=== PATIENT | male | born 1990 | race Hispanic/Latino ===

== ENCOUNTER 2024-05-27 23:59 | Emergency (ER) | payer SELFPAY ==
--- OUTSIDE RECORDS SUMMARY | 2024-05-28 00:02 | XMS REPORT | Continuity of Care Document ---
Author Name Unknown Address [address] [facility] [place] [address] [facility] thconnect Address [address] [facility] [address] [place] [address] Care Team Providers Care Certified Registered Dental Assistant Name Role Phone [facility]In[facility] Attending Clinician Unavail able [facility] Admitting Clinician Unavail able Payers Payer Name Policy Type Policy Number Effective Date Expirati on Date Source Problems Condition Name Condition Details Condition Category Status Onset Date Resolution Date Last Treatment Date Treating Clinician Comments Source Elevated blood-pres sure reading without diagnosis of hypertensi on Elevated Blood-pres sure Reading without Diagnosis of Hypertensi on Problem Active - 00:00: 00 [facility] Upper respirator y infection Upper Respirator y Infection Problem Active 11-18 00:00: 00 [facility] Seasonal allergic rhinitis Seasonal Allergic Rhinitis Problem Active 11-18 00:00: 00 [facility] Social History Smoking Status Start Date Stop Date Source Never Smoker [facility] Medications Ordered Medication Name Filled Medication Name Start Date Stop Date Current Medication? Ordering Clinician Indication Dosage Frequency Signature (SIG) Comments Components Source Mucinex as directed Mucinex as directed No Mucinex as directed [facility] Claritin 10 mg tablet Take 1 tablet every day by oral route. Claritin 10 mg tablet Take 1 tablet every day by oral route. No 1 Q1D Claritin 10 mg tablet Take 1 tablet every day by oral route. [facility] Vital Signs Vital Name Observation Time Observation Value Comments S ource BP Diastolic 2023-11-19 00:00:00 96 mm[Hg] [facility] BMI (Body Mass Index) 2023-11-19 00:00:00 29.4 kg/m2 [facility] BP Systolic 2023-11-19 00:00:00 138 mm[Hg] [facility] Height 2023-11-19 00:00:00 62 [in_i] [facility] Body Weight 2023-11-19 00:00:00 2568 [oz_av] [facility] Plan of Care Planned Activity Planned Date Details Comments Source Diagnostic Test Pending 2023-11-19 00:00:00 rapid SARS CoV 2 Ag, QL IA, respiratory specimen [code = rapid SARS CoV 2 Ag, QL IA, respiratory specimen] [facility] Diagnostic Test Pending 2023-11-19 00:00:00 CBC w/ auto diff [code = CBC w/ auto diff] [facility] Diagnostic Test Pending 2023-11-19 00:00:00 lipid panel, serum [code = lipid panel, serum] [facility] Diagnostic Test Pending 2023-11-19 00:00:00 CMP, serum or plasma [code = CMP, serum or plasma] [facility] Diagnostic Test Pending 2023-11-19 00:00:00 HbA1c (hemoglobin A1c), blood [code = HbA1c (hemoglobin A1c), blood] [facility] Encounters Start Date/Time End Date/Time Encounter Type Admission Type Attending [facility] Facility Care Department Encounter ID Source 2023-11-19 00:00:00 2023-11-19 00:00:00 TANJA Lewis: [id number] [id number] , Ph. [facility]Walk In[facility] - [facility]_Need velma Office [phone] [facility] Results Test Description Test Time Test Comments Results Result Co mments Source [facility]
[2024-05-28] MEDS ORDERED: IBUPROFEN 400 MG TAB ONE (00:39)
[2024-05-28] MEDS ORDERED: HYDROCOD 2.5mg-ACETAMIN 108mg/5mL Soln ONE (00:39)
[2024-05-28 01:24] LABS: SARS-CoV-2 Antigen CONTROL BLUE LINE VIS/BG OK; SARS-CoV-2 Antigen Rapid Res Negative (Negative)
--- NOTE | 2024-05-28 03:03 | ER ---
Nurse's Notes [facility] Name: Spencer James Age: 33 yrs Sex: Male : 1990 Arrival Date: 05/27/2024 Time: 23:59 Bed 8 Private MD: Diagnosis: Acute tonsillitis, unspecified;Acute bacterial tonsillitis Presentation: 05/28 00:23 Chief complaint: Patient states: SORE THROAT AND FEVER FOR THE PAST TWO DAYS. ha1 00:23 Coronavirus screen: Vaccine status: Patient reports receiving the 2nd dose of the covid ha1 vaccine. [employer]. Ebola Screen: No symptoms or risks identified at this time. Initial Sepsis Screen: Does the patient meet any 2 criteria? No. Patient's initial sepsis screen is negative. Does the patient have a suspected source of infection? No. Patient's initial sepsis screen is negative. Risk Assessment: Do you want to hurt yourself or someone else? Patient reports no desire to harm self or others. Onset of symptoms was May 28, 2024. 00:23 Method Of Arrival: Ambulatory ha1 00:23 Acuity: NALDO 4 ha1 Triage Assessment: 00:23 General: Appears comfortable, Behavior is calm, cooperative. Pain: Complains of pain in ha1 SORE THROAT Pain does not radiate. Pain currently is 6 out of 10 on a pain scale. Quality of pain is described as aching. Neuro: Level of Consciousness is awake, alert, obeys commands, Oriented to person, place, time, situation. Cardiovascular: Patient's skin is warm and dry. Respiratory: Airway is patent Respiratory effort is even, unlabored, Respiratory pattern is regular, symmetrical. Historical: - Allergies: 00:38 No Known Allergies; ha1 - PMHx: 00:38 None; ha1 - Immunization history:: Adult Immunizations up to date. - Infectious Disease History:: Denies. - Social history:: Smoking status: Patient denies any tobacco usage or history of. Screenin:25 [facility] ED Fall Risk Assessment (Adult) History of falling in the last 3 months, br2 including since admission No falls in past 3 months (0 pts) Confusion or Disorientation No (0 pts) Intoxicated or Sedated No (0 pts) Impaired Gait No (0 pts) Mobility Assist Device Used No (0 pt) Altered Elimination No (0 pt) Score/Fall Risk Level 0 - 2 = Low Risk Oriented to surroundings, Maintained a safe environment, Hourly rounding (assess needs \T\ fall precautionary measures) done. Abuse screen: Denies threats or abuse. Denies injuries from another. Nutritional screening: No deficits noted. Tuberculosis screening: No symptoms or risk factors identified. Assessment: 00:25 Reassessment: Patient and/or family updated on plan of care and expected duration. Pain br2 level reassessed. Patient is alert, oriented x 3, equal unlabored respirations, skin warm/dry/pink. General: Appears in no apparent distress. comfortable, Behavior is calm, cooperative, quiet. Pain: Complains of pain in neck Pain does not radiate. Pain currently is 5 out of 10 on a pain scale. Neuro: Ernandez Agitation-Sedation Scale (RASS): 0 - Alert and Calm Level of Consciousness is awake, alert, obeys commands, Oriented to person, place, time, situation. Cardiovascular: Denies chest pain, shortness of breath, Capillary refill < 3 seconds Patient's skin is warm and dry. Respiratory: Airway is patent Respiratory effort is even, unlabored, Respiratory pattern is regular, symmetrical, Breath sounds are clear bilaterally. GI: No signs and/or symptoms were reported involving the gastrointestinal system. Abdomen is flat, non-distended. : No signs and/or symptoms were reported regarding the genitourinary system. EENT: No signs and/or symptoms were reported regarding the EENT system. Throat is reddened. Derm: No signs and/or symptoms reported regarding the dermatologic system. Skin is intact, Skin is dry, Skin is normal, Skin temperature is warm. Musculoskeletal: No signs and/or symptoms reported regarding the musculoskeletal system. Circulation, motion, and sensation intact. Capillary refill < 3 seconds, Range of motion: intact in all extremities. 02:36 Reassessment: Patient and/or family updated on plan of care and expected duration. Pain br2 level reassessed. Patient is alert, oriented x 3, equal unlabored respirations, skin warm/dry/pink. Patient states feeling better. Patient states symptoms have improved. Vital Signs: 00:23 BP 133 / 84; Pulse 90; Resp 16 S; Temp 99.5; Pulse Ox 100% on R/A; Weight 66.22 kg (R); ha1 Height 5 ft. 4 in. ; 01:59 BP 127 / 73; Pulse 80; Resp 18 S; Pulse Ox 96% on R/A; br2 02:36 BP 127 / 73; Pulse 80; Resp 18 S; Pulse Ox 98% on R/A; Pain 2/10; br2 03:30 BP 126 / 85; Pulse 68 LA; Resp 19 S; Pulse Ox 99% on R/A; br2 00:23 Body Mass Index 25.06 (66.22 kg, 162.56 cm) ha1 02:36 Pain Scale: Adult br2 ED Course: 00:05 Patient arrived in ED. jj6 00:06 Davian Kay PA is PHCP. cp 00:06 David Arevalo MD is Attending Physician. cp 00:25 Patient has correct armband on for positive identification. Bed in low position. Call br2 light in reach. Side rails up X 1. Provided Education on: PLAN OF CARE. 00:30 Arm band placed on right wrist. br2 00:34 Rose Marie Peace, LIZETTE is Primary Nurse. br2 00:38 Triage completed. ha1 01:58 Throat Culture Sent. br2 03:31 No provider procedures requiring assistance completed. Patient did not have IV access br2 during this emergency room visit. Administered Medications: 00:49 Drug: Ibuprofen PO 800 mg PO once Route: PO; br2 01:59 Follow up: Response: No adverse reaction; Pain is decreased br2 00:49 Drug: Lortab PO Liquid 10 ml PO once Route: PO; br2 01:58 Follow up: Response: No adverse reaction; Pain is decreased br2 03:22 Drug: Acetaminophen PO 500 mg PO once Route: PO; al5 03:29 Follow up: Response: No adverse reaction br2 03:22 Drug: Rocephin (cefTRIAXone) IM 1 grams IM once Route: IM; Site: right gluteus; al5 03:29 Follow up: Response: No adverse reaction br2 Medication: 00:25 VIS not applicable for this client. br2 Outcome: 03:02 Discharge ordered by . sp4 03:31 Discharged to home ambulatory, br2 03:31 Condition: improved 03:31 Discharge instructions given to patient, significant other, Instructed on discharge instructions, follow up and referral plans. medication usage, Demonstrated understanding of instructions, follow-up care, medications, Prescriptions given X 3, 03:32 Patient left the ED. br2 Signatures: Davian Kay PA PA cp Jeffries, Jennifer jj6 Suki Espinal RN RN ha1 David Arevalo MD MD sp4 Nevin Stroud RN RN al5 Rose Marie Peace RN RN br2
--- NOTE | 2024-05-28 03:03 | EDPHYS ---
Physician Documentation [facility] Name: Spencer James Age: 33 yrs Sex: Male : 1990 Arrival Date: 05/27/2024 Time: 23:59 Bed 8 Private MD: ED Physician David Arevalo HPI: 05/28 00:20 This 33 yrs old Male presents to ER via Unassigned with complaints of Fever, cp Sore Throat. 00:20 Onset: The symptoms/episode began/occurred yesterday. Associated signs and symptoms: cp Pertinent positives: headache, sore throat. Historical: - Allergies: 00:38 No Known Allergies; ha1 - PMHx: 00:38 None; ha1 - Immunization history:: Adult Immunizations up to date. - Infectious Disease History:: Denies. - Social history:: Smoking status: Patient denies any tobacco usage or history of. ROS: 00:25 Constitutional: Positive for fever, cp 00:25 ENT: Positive for sore throat, Negative for drainage from ear(s), ear pain, difficulty cp swallowing, difficulty handling secretions, 00:25 Respiratory: Negative for cough, shortness of breath, wheezing, 00:25 Abdomen/GI: Negative for abdominal pain, vomiting, diarrhea, constipation, 00:25 Neuro: Positive for headache, 00:25 Eyes: Negative for injury, pain, redness, and discharge, cp 00:25 Skin: Negative for rash, cp Exam: 00:30 Constitutional: The patient appears in no acute distress, alert, awake, non-toxic, well cp developed, well nourished, 00:30 Head/Face: Normocephalic, atraumatic. cp 00:30 Eyes: Periorbital structures: appear normal, Conjunctiva: normal, no exudate, no injection, Sclera: no appreciated abnormality, Lids and lashes: appear normal, bilaterally, 00:30 ENT: External ear(s): are unremarkable, Ear canal(s): are normal, clear, TM's: bulging, is not appreciated, bilaterally, dullness, bilaterally, erythema, is not appreciated, bilaterally, Nose: is normal, Mouth: Lips: moist, Oral mucosa: moist, Posterior pharynx: Airway: no evidence of obstruction, patent, Tonsils: bilaterally enlarged, with erythema, with exudate, Uvula: midline, erythema, that is mild, 00:30 Neck: ROM/movement: Meningeal signs: are not present, nuchal rigidity, is not appreciated, Lymph nodes: lymphadenopathy is appreciated, anterior cervical nodes, 00:30 Chest/axilla: Inspection: normal, 00:30 Cardiovascular: Rate: normal, Rhythm: regular, 00:30 Respiratory: the patient does not display signs of respiratory distress, Respirations: normal, no use of accessory muscles, no retractions, labored breathing, is not present, Breath sounds: are clear throughout, no decreased breath sounds, no stridor, no wheezing, 00:30 Abdomen/GI: Inspection: abdomen appears normal, Palpation: abdomen is soft and non-tender, in all quadrants, Vital Signs: 00:23 BP 133 / 84; Pulse 90; Resp 16 S; Temp 99.5; Pulse Ox 100% on R/A; Weight 66.22 kg (R); ha1 Height 5 ft. 4 in. ; 01:59 BP 127 / 73; Pulse 80; Resp 18 S; Pulse Ox 96% on R/A; br2 02:36 BP 127 / 73; Pulse 80; Resp 18 S; Pulse Ox 98% on R/A; Pain 2/10; br2 03:30 BP 126 / 85; Pulse 68 LA; Resp 19 S; Pulse Ox 99% on R/A; br2 00:23 Body Mass Index 25.06 (66.22 kg, 162.56 cm) ha1 02:36 Pain Scale: Adult br2 MDM: 00:23 Patient medically screened. cp 00:50 Differential diagnosis: strep throat, tonsillitis, tonsillar abscess, influenza, cp COVID-19. 05/28 00:15 Order name: Strep; Complete Time: 02:57 cp 05/28 00:15 Order name: SARS RAPID; Complete Time: 02:57 cp 05/28 00:15 Order name: Influenza Screen (a \T\ B); Complete Time: 02:57 cp 05/28 01:26 Order name: Throat Culture EDMS Administered Medications: 00:49 Drug: Ibuprofen PO 800 mg PO once Route: PO; br2 01:59 Follow up: Response: No adverse reaction; Pain is decreased br2 00:49 Drug: Lortab PO Liquid 10 ml PO once Route: PO; br2 01:58 Follow up: Response: No adverse reaction; Pain is decreased br2 03:22 Drug: Acetaminophen PO 500 mg PO once Route: PO; al5 03:29 Follow up: Response: No adverse reaction br2 03:22 Drug: Rocephin (cefTRIAXone) IM 1 grams IM once Route: IM; Site: right gluteus; al5 03:29 Follow up: Response: No adverse reaction br2 Disposition: 03:02 Co-signature as Attending Physician, David Arevalo MD I agree with the assessment sp4 and plan of care. I reviewed the patient's care provided by Advanced Practice Provider \T\ agree w/ the diagnosis \T\ care plan. I personally saw the pt \T\ performed a substantive portion of the visit, incldng all aspects of the (History/Exam/Medical Decision Making). Disposition Summary: 05/28/24 03:02 Discharge Ordered Notes: Location: Home sp4 Problem: new sp4 Symptoms: have improved sp4 Condition: Stable sp4 Diagnosis - Acute tonsillitis, unspecified sp4 - Acute bacterial tonsillitis sp4 Followup: sp4 - With: Private Physician - When: 7 - 10 days - Reason: Recheck today's complaints Discharge Instructions: - Discharge Summary Sheet sp4 - Tonsillitis, [id number] sp4 Forms: - Patient Portal Instructions sp4 Prescriptions: - Cephalexin 500 mg Oral Capsule - take 1 capsule ORAL route every 12 hours for 10 days; 20 capsule; Refills: 0, sp4 Product Selection Permitted - Ibuprofen 800 mg Oral Tablet - take 1 tablet ORAL route every 8 hours As needed take with food; 30 tablet; sp4 Refills: 0, Product Selection Permitted - Tramadol 50 mg Oral Tablet - take 1 tablet ORAL route every 8 hours as needed; 12 tablet; Refills: 0, sp4 Product Selection Permitted Signatures: Dispatcher [employer] EDMS Davian Kay PA PA cp Ayala, Heidy, RN RN ha1 David Arevalo MD MD sp4 Nevin Stroud RN RN al5 Rose Marie Peace RN RN br2 Corrections: (The following items were deleted from the chart) 00:15 00:15 Group A Streptococcus Rapid Sc+BA.LAB.BRZ ordered. EDNY EDMS 00:15 00:15 SARS-COV-2 Antigen Rapid+I.LAB.BRZ ordered. EDMS EDMS 00:15 00:15 Influenza Screen (A \T\ B)+BA.LAB.BRZ ordered. EDMS EDMS
[2024-05-28] MEDS ORDERED: CEFTRIAXONE 1000 MG/VIAL ONE (03:10)
[2024-05-28] MEDS ORDERED: ACETAMINOPHEN 500 MG TAB ONE (03:11)
[2024-05-28] MEDS ORDERED: LIDOCAINE 1% MPF 5 ML VIAL ONE (03:13)
[2024-05-28 03:37] VITALS: TEMP 99.5
[2024-05-28 03:41] VITALS: BP 126/85; O2SAT 99
== END 2024-05-28 03:32 | disposition home or self-care (01) ==
LOC: ER 23:59
DX: J03.90 Acute tonsillitis, unspecified (principal); Z11.52 Encounter for screening for COVID-19
CPT/HCPCS: 36415; 87070; 87081; 87804; 87811; 96372; 99284; J0696; J2001